=== PATIENT | female | born 1980 | race African-American/Black ===

== ENCOUNTER 2021-02-21 20:51 | Emergency (ER) | payer BC ==
[~2021-02-21] VITALS: Ht 162.6 cm; Wt 68.2 kg
[2021-02-21] MEDS ORDERED: MECLIZINE HCL12.5 MG PO (22:06)
[2021-02-21] MEDS ORDERED: ONDANSETRON ODT4 MG PO (22:07)
[2021-02-21] MEDS ORDERED: NASACORT16.9 ML (22:09)
[2021-02-21] MEDS ORDERED: ONDANSETRON HCL 4 MG ORAL DISINTEGRATING TAB PO ONE (22:15)
== END 2021-02-21 22:20 | disposition home or self-care (01) ==
LOC: FSED 21:00
DX: H69.83 Other specified disorders of Eustachian tube, bilateral (principal); R42 Dizziness and giddiness
CPT/HCPCS: 99282; Q0162

== ENCOUNTER 2021-11-22 14:57 | Emergency (ER) | payer BC ==
[~2021-11-22] VITALS: Ht 162.6 cm; Wt 66.4 kg
[~2021-11-22 14:57] MED LIST: MECLIZINE HCL12.5 MG PO; NASACORT16.9 ML; ONDANSETRON ODT4 MG PO
[2021-11-22] MEDS ORDERED: SODIUM CHLORIDE 0.9% 1000ML 1,000 ML IV STA (15:32)
[2021-11-22] MEDS ORDERED: FAMOTIDINE 20 MG/2 ML VIAL IV ONE ×2 (15:45→16:20)
[2021-11-22] MEDS ORDERED: KETOROLAC TROMETHAMINE 30 MG/ML VIAL IV ONE (15:45)
[2021-11-22] MEDS ORDERED: SODIUM CHLORIDE 0.9% 1000ML 1,000 ML ONE (16:19)
[2021-11-22] MEDS ORDERED: KETOROLAC TROMETHAMINE 30 MG/ML VIAL ONE (16:19)
[2021-11-22] MEDS ORDERED: ULTRAM 50MG50 MG PO (18:32)
[2021-11-22] MEDS ORDERED: ACETAMINOPHEN500 MG PO (18:32)
== END 2021-11-22 19:42 | disposition home or self-care (01) ==
LOC: FSED 15:06
DX: R10.2 Pelvic and perineal pain (principal); N83.201 Unspecified ovarian cyst, right side
CPT/HCPCS: 74176; 76857; 80053; 81003; 81025; 85025; 96374; 96375; 99284; J1885; J7030